=== PATIENT | female | born 1945 | race Caucasian/White ===

== ENCOUNTER 2018-08-06 08:00 | Outpatient (CLI) | payer OTHER ==
[~2018-08-06 08:00] MED LIST: ACET-1600 PO; ESTR1PAT65 TP; ESTR42.53 TP; HYDR12.58 PO; LEVO50TA PO; LISI-170 PO; MINE3.5O4 LEFTEYE; PROP1DRO6 RIGHTEYE; RABE20TA26 PO; ROSU10TA PO; TRIA10.8 NAS
[2018-08-06] MEDS ORDERED: AMLO5TAB7 PO (09:53)
[2018-08-06] MEDS ORDERED: ESTRADIOL TD (09:53)
[2018-08-06] MEDS ORDERED: Turmeric PO (09:53)
[2018-08-06] MEDS ORDERED: CHOL5000 PO (09:53)
[2018-08-06] MEDS ORDERED: ESTR42.53 VG (09:53)
[2018-08-06] MEDS ORDERED: MULT-224 PO (09:53)
[2018-08-06] MEDS ORDERED: DOXYLAMINE SUCCINATE PO (09:53)
[2018-08-06] MEDS ORDERED: Citracal PO (09:53)
[2018-08-06] MEDS ORDERED: NAPR220C2 PO (09:53)
[2018-08-06 10:21] LABS: BASOPHILS # (AUTO) 0.04 x10^3/uL (0-0.1); BASOPHILS % (AUTO) 1 % (0-1); EOSINOPHILS # (AUTO) 0.14 x10^3/uL (0-0.4); EOSINOPHILS % (AUTO) 3 % (1-7); LYMPHOCYTES # (AUTO) 1.93 x10^3/uL (1-3.4); LYMPHOCYTES % (AUTO) 35 % (22-44); MD NO; MEAN CORPUSCULAR HEMOGLOBIN 30.4 pg (27.0-34.8); MEAN CORPUSCULAR HGB CONC 33.6 g/dL (32.4-35.8); MEAN CORPUSCULAR VOLUME 90.6 fL (80-100); MEAN PLATELET VOLUME 7.1 fL (7.4-10.4); MONOCYTES # (AUTO) 0.41 x10^3/uL (0.2-0.8); MONOCYTES % (AUTO) 8 % (2-9); NEUTROPHILS # (AUTO) 2.95 x10^3/uL (1.8-6.8); NEUTROPHILS % (AUTO) 54 % (42-75); PLATELET COUNT 329 x10^3/uL (130-400); RED BLOOD COUNT 4.54 x10^6/uL (3.82-5.3); RED CELL DISTRIBUTION WIDTH 13.8 % (9.6-15.2)
[2018-08-06 10:39] LABS: ALBUMIN 4.6 g/dL (3.4-5.0); ANION GAP 4 mmol/L (5-15); CALCIUM 9.6 mg/dL (8.5-10.1); CHLORIDE 107 mmol/L (98-107)
[2018-08-06 10:42] LABS: ALANINE AMINOTRANSFERASE 31 U/L (12-78); ALKALINE PHOSPHATASE 54 U/L (45-117); BILIRUBIN,TOTAL 0.6 mg/dL (0.2-1.0); CREATININE 0.91 mg/dL (0.55-1.02); TOTAL PROTEIN 7.6 g/dL (6.4-8.2)
== END 2018-08-06 17:00 | disposition home or self-care (01) ==
LOC: STAR 08:00
PROVIDERS: ATTEND Obstetrics & Gynecology Female Pelvic Medicine and Reconstructive Surgery
DX: Z01.818 Encounter for other preprocedural examination (principal); N81.4 Uterovaginal prolapse, unspecified; I10 Essential (primary) hypertension
CPT/HCPCS: 36415; 71046; 80053; 85025; 93005

== ENCOUNTER 2018-08-24 08:29 | Day surgery (SDC) | payer OTHER ==
[2018-08-06 09:54] VITALS: BP 119/79
[~2018-08-24] VITALS: Ht 172.7 cm; Wt 94.9 kg
[~2018-08-24 08:29] MED LIST changes: +AMLO5TAB7 PO; +CHOL5000 PO; +Citracal PO; +DOXYLAMINE SUCCINATE PO; +ESTR42.53 VG; +ESTRADIOL TD; +MULT-224 PO; +NAPR220C2 PO; +Turmeric PO
[2018-08-24] MEDS ORDERED: LACTATED RINGERS 1,000 ML IV SCH ×2 (09:14→12:19)
[2018-08-24] MEDS ORDERED: [UNRECOGNIZED DRUG - OTHER] INH (09:17)
[2018-08-24] MEDS ORDERED: ONDANSETRON ODT 8 MG PO ONE (09:30)
[2018-08-24] MEDS ORDERED: ACETAMINOPHEN 500 MG TABLET PO ONE (09:30)
[2018-08-24] MEDS ORDERED: MIDAZOLAM 1 MG/ML, 2ML ONE (09:32)
[2018-08-24] MEDS ORDERED: FENTANYL PF 250 MCG/5ML ONE (09:33)
[2018-08-24] MEDS ORDERED: THROMBIN 20,000 UNIT VIAL TP ONE (09:55)
[2018-08-24] MEDS ORDERED: INDIGO CARMINE 0.8%, 5ML ONE (09:55)
[2018-08-24] MEDS ORDERED: BUPIVACAINE/PF-EPI 0.25% 1:200K ONE (09:55)
[2018-08-24] MEDS ORDERED: NEOMY/POLYMYXIN B GU IRR. 1 ML IRRIG ONE (09:55)
[2018-08-24] MEDS ORDERED: EPHEDRINE 50 MG/ML, 1ML ONE (10:16)
[2018-08-24] MEDS ORDERED: MEPERIDINE/PF 25MG/0.5ML IVPush PRN (11:00)
[2018-08-24] MEDS ORDERED: SCOPOLAMINE PATCH, 1.5MG PATCH.TD72 TD PRN (11:00)
[2018-08-24] MEDS ORDERED: ALBUTEROL/IPRATROPIUM 2.5MG/0.5MG, 3 ML NPPB PRN (11:00)
[2018-08-24] MEDS ORDERED: FENTANYL PF 100 MCG/2ML IV PRN (11:00)
[2018-08-24] MEDS ORDERED: PROMETHAZINE 25 MG SUPP PR PRN (11:00)
[2018-08-24] MEDS ORDERED: ONDANSETRON 2MG/ML, 2ML IV PRN (11:00)
[2018-08-24] MEDS ORDERED: LABETALOL 5MG/ML, 20ML IV PRN (11:00)
[2018-08-24] MEDS ORDERED: MIDAZOLAM 1 MG/ML, 2ML IV PRN (11:00)
[2018-08-24] MEDS ORDERED: OXYcodone 5 MG/5 ML ORAL.SOL UDC PO PRN (11:00)
[2018-08-24] MEDS ORDERED: ROCURONIUM 10MG/ML,5ML ONE (12:02)
[2018-08-24] MEDS ORDERED: CEFAZOLIN 1,000 MG ONE (12:02)
[2018-08-24] MEDS ORDERED: GLYCOPYRROLATE 0.2MG/1ML, 5ML ONE (12:02)
[2018-08-24] MEDS ORDERED: PROPOFOL 10 MG/ML, 20ML ONE (12:02)
[2018-08-24] MEDS ORDERED: DEXAMETHASONE 4 MG/ML, 1ML ONE (12:02)
[2018-08-24] MEDS ORDERED: NEOSTIGMINE 1 MG/ML, 10ML ONE (12:02)
[2018-08-24] MEDS ORDERED: KETOROLAC 30 MG/1 ML ONE (12:03)
[2018-08-24] MEDS ORDERED: LIDOCAINE-MPF 2% ,5ML ONE (12:03)
[2018-08-24] MEDS ORDERED: PROMETHAZINE 25 MG SUPP PR ONE (12:30)
[2018-08-24] MEDS ORDERED: HYDROcodone/APAP 5/325 TABLET PO PRN (12:30)
[2018-08-24] MEDS ORDERED: IBUPROFEN 600 MG TABLET PO PRN (12:30)
[2018-08-24] MEDS ORDERED: ONDANSETRON 2MG/ML, 2ML IVPush PRN (12:30)
[2018-08-24] MEDS ORDERED: ONDANSETRON 2MG/ML, 2ML ONE (12:32)
[2018-08-24] MEDS ORDERED: HYDROmorphone 2 MG/ML, 1ML ONE (12:32)
[2018-08-24] MEDS ORDERED: OXYcodone 5 MG/5 ML ORAL.SOL UDC ONE (12:32)
[2018-08-24] MEDS: HYDROmorphone 1 MG/ML, 1ML IV PRN ×4 (12:36→13:08)
[2018-08-24 19:25] VITALS: BP 125/83
== END 2018-08-24 23:19 | disposition home or self-care (01) ==
LOC: OUT 08:29 → 4NOR 19:29 → OUT 23:19
PROVIDERS: ATTEND Obstetrics & Gynecology Female Pelvic Medicine and Reconstructive Surgery
DX: N81.4 Uterovaginal prolapse, unspecified (principal); F32.9 Major depressive disorder, single episode, unspecified; F41.9 Anxiety disorder, unspecified; E03.9 Hypothyroidism, unspecified; I10 Essential (primary) hypertension; E78.5 Hyperlipidemia, unspecified; K21.9 Gastro-esophageal reflux disease without esophagitis; Z90.710 Acquired absence of both cervix and uterus; Z90.722 Acquired absence of ovaries, bilateral; Z87.39 Personal history of other diseases of the musculoskeletal system and connective tissue; Z90.49 Acquired absence of other specified parts of digestive tract; Z98.890 Other specified postprocedural states; Z88.5 Allergy status to narcotic agent; Z88.8 Allergy status to other drugs, medicaments and biological substances
CPT/HCPCS: 57282; C1781; J0690; J1100; J1170; J1885; J2250; J2405; J2704; J2710; J3010; J3490; J7120; Q0162; G0378